=== PATIENT | female | born 1960 | race Caucasian/White ===

== ENCOUNTER 2021-04-26 10:27 | Outpatient (CLI) | payer OTHER, SELFPAY ==
[2021-04-26 16:56] LABS: Free T4 Free Thyroxine 1.47 ng/mL (0.78-2.19)
== END 2021-04-26 10:28 | disposition home or self-care (01) ==
LOC: ANHWCLAB 10:30
PROVIDERS: PCP Family Medicine; Visit Provider Internal Medicine Endocrinology, Diabetes & Metabolism
DX: E03.9 Hypothyroidism, unspecified (principal); E04.1 Nontoxic single thyroid nodule; M85.80 Other specified disorders of bone density and structure, unspecified site; R79.89 Other specified abnormal findings of blood chemistry
CPT/HCPCS: 36415; 84439; 84443

== ENCOUNTER → 2021-08-01 11:12 | Outpatient (CLI) | payer OTHER, SELFPAY ==
--- NOTE | ~2021-08-01 | DEXA_ITS ---
Bone Density Report Name: HAYDEN SZYMANSKI Age: 60 Sex: Female Ethnicity: White Date of : 1960 Indication: postmenopausal; screening for osteoporosis; history of glucocorticoids; hysterectomy; Referring Provider: Shreya Oliver Study: Bone densitometry was performed. Exam Date: August 01, 2021 Accession number: [id number] Bone Density: Region BMD T-score Z-score Classification AP Spine (L1-L4) 0.944 -0.9 0.7 Normal Femoral Neck (Left) 0.746 -0.9 0.5 Normal Total Hip (Left) 0.896 -0.4 0.7 Normal Femoral Neck (Right) 0.815 -0.3 1.1 Normal Total Hip (Right) 0.953 0.1 1.2 Normal Total Hip Mean 0.925 -0.2 1.0 Normal World Health Organization criteria for BMD impression classify patients as: Normal (T-score at or above -1.0), Osteopenia (T-score between -1.0 and -2.5), or Osteoporosis (T-score at or below -2.5). 10-year Fracture Risk: FRAX not reported because: All T-scores for Spine Total, Hip Total, Femoral Neck at or above -1.0 Clinical Information Provided by Patient: Has taken Glucocorticoids Has used the following medications: Calcium, calcium includes vit D, MTV Has the following medical conditions: Hysterectomy Patient maximum height was 61.75 Menopause Age: 36 Drinks caffeinated beverages Onset of menses at age 11 Number of children 2 Impression: The patient has normal bone mass. The patient has risk factors, including: history of glucocorticoid therapy. Discussion: BONE DENSITY IS ABOVE THE MINIMUM DESIRABLE LEVEL AT ALL SKELETAL SITES TESTED. This patient?s bone mineral density is above the minimum desirable level (T-score -1.0 or better) at all sites measured. The patient should follow a healthful lifestyle (good nutrition with adequate calcium and vitamin D, and appropriate weight-bearing exercise). Follow-Up: Consider repeating this study in 5 years or sooner if there is some new clinical indication. Reported by: [facility] on 08/01/2021 11:41:00 AM. Reviewed, dictated and finalized at location A. [facility]
== END ==
PROVIDERS: PCP Family Medicine; Visit Provider Internal Medicine Endocrinology, Diabetes & Metabolism
DX: M85.88 Other specified disorders of bone density and structure, other site (principal); Z78.0 Asymptomatic menopausal state
CPT/HCPCS: 77080

== ENCOUNTER 2023-04-19 12:52 | Outpatient (CLI) | payer OTHER, SELFPAY ==
--- NOTE | 2023-04-19 13:06 | ECG_ITS ---
Measurements Intervals [place] Rate: 64 P: 28 UT: 162 QRS: -35 QRSD: 90 T: 78 QT: 425 QTc: 441 Interpretive Statements SINUS RHYTHM LOW QRS VOLTAGE IN PRECORDIAL LEADS ANTEROLATERAL INFARCT, AGE INDETERMINATE INFERIOR INFARCT, AGE INDETERMINATE BORDERLINE ST-T WAVE ABNORMALITY- HIGH LATERAL LEADS BASELINE ARTIFACT- I, II, III, AVR, AVL, AVF, V4-V5 ABNORMAL ECG NO PREVIOUS ECG AVAILABLE FOR COMPARISON Electronically Signed On 04-19-2023 13:33:40 CDT by Mack Trotter D.O.
[2023-04-19 13:46] LABS: Hematocrit 38.2 % (37.0-47.0); Hemoglobin 11.8 g/dL (12.0-15.0)
== END 2023-04-19 12:53 | disposition home or self-care (01) ==
LOC: ANHSURGERY 12:56
PROVIDERS: Anesthesiology; PCP Family Medicine; Visit Provider Surgery Plastic and Reconstructive Surgery
DX: Z41.1 Encounter for cosmetic surgery (principal)
CPT/HCPCS: 36415; 85014; 85018; 93005

== ENCOUNTER 2023-04-23 00:43 | Day surgery (SDC) | payer OTHER, SELFPAY ==
[2023-04-16 14:49] VITALS: BMI 33.6
--- NOTE | 2023-04-16 14:50 | PC.NURSE ---
Report to the Outpatient Waiting Room, entrance under the green pavilion located off [facility], at time 6:00 on date 04/23/23. Planned Procedure Time: 7:30. Time changes happen often and if your time is changed the preop area will call you the afternoon before. - You and your visitor will be asked to self-screen and do not enter if you have any COVID symptoms. - A mask is optional within the hospital at this time. Patients may have clear liquids (water, carbonated beverages, clear teas, apple juice) until 3 hours prior to surgery (4:30) with a maximum of 20 ounces. - No food from midnight until time of surgery Take the following medications with a SIP of water the morning of surgery: LEVOTHYROXINE, LIOTHYRONINE, ALPRAZOLAM IF NEEDED DO NOT STOP ANY OF YOUR OTHER PRESCRIPTION MEDICATIONS PRIOR TO SURGERY ?EXCEPT THE FOLLOWING Medications to discontinue per physician: VITAMINS Date to take last dose: 04/19/23 Please no make-up, nail slovenian, hairspray, perfume, deodorant, or body powder the day of surgery. No jewelry (including any body piercings) or valuables the day of surgery, leave them at home. Please take a shower or bath the night before, or the morning of, surgery with an antibacterial soap. Wear comfortable, loose fitting clothing. - Jewelry must be removed prior to entering the operating room. Rings and piercings that are not removed may be cut off. - The hospital will not accept responsibility for valuables. - Please leave all valuables, including medications, at home the day of surgery. If you are going home after surgery, a licensed flag car driver must drive you home. - NO public transportation without another adult if you receive anesthesia. - We recommend that an adult stay with you for 24 hours following discharge. - We also recommend that you do not drive, make important decision, drink alcoholic beverages, or take any drugs that were not prescribed by your health care provider for at least 24 hours after your discharge time. Follow any additional instructions given to you from your surgeon. If you or anyone in your household have experienced Covid symptoms in the past week, please notify your surgeon or the nurse liaison at the phone number below for possible testing. Telephone instructions given to PT - HAYDEN SZYMANSKI and asked if any additional questions and then verbalized understanding. Patient advised to call surgeon office or pre surgery nurse liaison [phone] if any additional questions.
[2023-04-23] VITALS (10 sets, daily range): BP systolic 92–160; BP diastolic 50–90; PULSE 58–82; RESP 12–18; TEMP 36.2–37.1; O2SAT 92–100; BMI 34.0
[2023-04-23 06:28] LABS: Urine Cotinine NEGATIVE
[2023-04-23] MEDS: LACTATED RINGERS 1,000 ML 30 ML IV CONT ×2 (06:30→15:13)
--- NOTE | 2023-04-23 06:43 | WPDANESEPPF ---
Anes - Initial Pre Proc Eval Procedure: Operation Date: 04/23/23 07:30 Proposed Procedures p Bilateral Breast Mastopexy with Galaflex - Coy Hughes MD s Abdominoplasty with Liposuction - Coy Hughes MD Date/Time: 04/23/23 06:43 Surgeon: Coy Hughes MD Pre Op Diagnosis: breast ptosis, skin laxity Patient Data Age: 62 Gender: F Height: 1.57 m Weight: 83.5 kg Allergies Allergy/AdvReac Type Severity Reaction Status Date / Time No Known Allergies Allergy Unknown Verified 04/23/23 06:42 Home Medications Medication Instructions Recorded Confirmed Type multivitamin,eq-abpl-nonfhezf 1 tablet PO DAILY 08/31/19 04/23/23 History (Complete Multivitamin tablet) levocetirizine 5 mg tablet (Xyzal) 5 mg PO DAILY 05/24/22 04/16/23 History levothyroxine 75 mcg tablet 75 mcg PO .COMPLEX #90 tabs 11/22/22 04/23/23 Rx liothyronine 5 mcg tablet (Cytomel) 5 mcg PO DAILY 90 days #90 tabs 11/22/22 04/23/23 Rx cholecalciferol (vitamin D3) 1,250 1,250 mcg PO WEEKLY #12 caps 03/01/23 04/23/23 Rx mcg (50,000 unit) capsule alprazolam 0.25 mg tablet 0.25 mg PO .q8hr PRN anxiety #90 04/02/23 04/16/23 Rx tabs Laboratory Tests 04/23/23 06:13 Cotinine Negative Patient hx anesthesia problems: none Family hx anesthesia problems: none Results Review: All pre-operative results and documents have been reviewed as part of the pre-operative evaluation. [facility] Past Medical History Medical History Hypothyroidism (acquired) Iron deficiency Multinodular goiter Thyroid nodule Surgical History Surgical History H/O: History of appendectomy History of partial hysterectomy Family History Family History Grandparent Diabetes mellitus Family history of Alzheimer's disease Family history of malignant neoplasm of uterus Other Family history of thyroid disease Social History Social History Smoking status: Never smoker Second hand tobacco smoke exposure: No Alcohol intake: never Alcohol use details: rarely Substance use: never Substance use type: does not use Living arrangements: with family 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/Education: occupation 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 Informed Consent: The patient's anesthetic plan and its attendant risks and benefits were discussed with the patient/family/POA. Questions were solicited and answers provided to the satisfaction of the patient/family/POA.
--- NOTE | 2023-04-23 07:21 | WPDHPUPDATE1 ---
History and Physical Update Update Date/Time: 04/23/23 07:21 History and Physical has been reviewed, including an updated exam of the patient. There are NO changes in the patient's condition. Risks, benefits, and alternatives have been discussed and questions answered. Patient agrees to proceed with procedure.
--- NOTE | 2023-04-23 07:22 | W.PM.PROC2 ---
Procedure Note - Detailed Date of Procedure 04/23/23 Pre-op Diagnosis breast ptosis, skin laxity Post-op Diagnosis Same Procedure Performed 1. Bilateral mastopexy with Galaflex 2. Progressive tension abdominoplasty Surgeon Coy Hughes MD Anesthesia General Findings Inverted T superior pedicle mastopexy Galaflex Lot [id number] Tissue removed: 3200 grams Lipoaspirate: 3200 cc Description of Procedure They are here today for the above procedures. Previously and again today the risks, benefits, alternatives were discussed in extensive detail. I wanted them to be very realistic about the risks involved as well as expectations. We discussed aftercare and what to monitor for. I was very upfront about the risks of wound breakdown leading to loss of skin, open wounds, and need for additional procedures with permanent abdominal deformity. We discussed DVT/PE risks and management. Made sure answered all of their questions to their satisfaction today and consent was obtained. Flank / lower back They were marked in the preoperative holding area with their verification. The patient was taken to the operating room. Anesthesia was provided by anesthesiology. A Colon catheter was started. Placed prone on the operating room table with care taken to protect from injury. Prepped and draped in a standard sterile fashion. A surgical time-out was taken. Stab incisions were made and tumescent solution was infiltrated. Once adequate time was allowed for hemostasis a 5mm basket and 3mm multi hole cannula were utilized to complete suction lipectomy based on S.A.F.E. technique in multiple planes and passes. Suction lipectomy continued to result based on pre-operative planning, intra-operative observation, and rolling pinch test which were in full agreement. Patient was then placed supine with care taken to protect from injury. Breast Eleven blade was utilized to make a stab incision and infiltrated with low volume tumescent solution. The breast was tailor tacked into place. I tailor tacked the breast into position. Placed her in a sitting position. Verified the nipple-areolar location based on preoperative planning as well as intraoperative observations and measurements in full agreement. She was placed supine. I de-epithelialized the pedicle. I then de-epithelialized the inferior breast tissue to create an autoaugmentation flap based on intercostal home health physical therapist. I elevated medial and lateral tissue flaps as well for planned closure. The autoaugmentation flap was sutured to the chest wall with 2-0 PDS. Galaflex was soaking in a betadine solution on the back table. It was trimmed and it was sutured into place bilateral with 2-0 Vicryl. I closed along the IMF with 2-0 Stratafix. Along the vertical with 2-0 PDS. I closed around the James with 3-0 strata fix. 3-0 Monocryl along the vertical. 3-0 Stratafix along the IMF. I finally closed everything with running subcuticular 4-0 Monocryl and tissue glue. Abdomen I placed the patient in a flexed position to verify the upper and lower markings would reach. I then placed supine. A thorough abdominal examination was completed. Stab incisions were made and tumescent solution infiltrated. Stab incisions were made and tumescent solution was infiltrated. Once adequate time was allowed for hemostasis a 5mm basket and 3mm multi hole cannula were utilized to complete suction lipectomy based on S.A.F.E. technique in multiple planes and passes. Suction lipectomy continued to result based on pre-operative planning, intra-operative observation, and rolling pinch test which were in full agreement. A 10 blade was used to make the upper incision. I continued dissection down to the level of fascia. Elevated just what was necessary for repair of the diastasis. I then again flexed the bed to verify the upper skin flap would reach the lower markings without tension. Once verified I plac
[2023-04-23] MEDS: BUPivacaine HCL 0.5% 10 ML AMP 60 ML INFILTRATE (07:32)
[2023-04-23] MEDS: ceFAZolin 2 GM/D5W 50 ML 2 GM/50 ML BAG IVPB (07:32)
[2023-04-23] MEDS: LACTATED RINGERS IRRIG 1,000 ML, LIDOCAINE HCL 1% LOCAL INJ 50 ML, EPINEPHrine HCL INJ ... INFILTRATE (07:32)
[2023-04-23] MEDS: NACL 0.9% IRRIG POUR BOTTLE 900 ML, GENTAMICIN SULFATE INJ 160 MG, ceFAZolin 2 GM, POVI... IRRIGATION (07:32)
[2023-04-23] MEDS: TRANEXAMIC ACID 1,000MG/ISO100 1,000 MG/100 ML BAG 200 MG IVPB (07:42)
--- NOTE | 2023-04-23 14:49 | SUR.OPER ---
when inserting felder catheter, red irritation and small tinge of blood present in area surrounding urethra. Dr. Hughes informed, no further orders received
[2023-04-23] MEDS: LACTATED RINGERS 1,000 ML 125 ML IV CONT ×2 (15:13→17:17)
[2023-04-23] MEDS: fentaNYL CITRATE INJ (*CRX) 100 MCG/2 ML VIAL 25 MCG IV PUSH ×6 (15:31→16:27)
--- NOTE | 2023-04-23 16:45 | PC.NURSE ---
This patient, Simran Phoenix, was received from PACU on 04/23/23 at 1645. Patient/family oriented to unit policies and routines
[2023-04-23] MEDS: KETOROLAC 10 MG TABLET PO (17:16)
[2023-04-23] MEDS: ONDANSETRON INJ 4 MG/2 ML VIAL IV PUSH (17:16)
[2023-04-23] MEDS: carisoprodoL (*CRX) 350 MG TABLET PO (17:17)
[2023-04-23] MEDS: DOCUSATE SODIUM 100 MG CAPSULE PO (21:01)
[2023-04-23] MEDS: ENOXAPARIN 40 MG/0.4 ML SYRINGE SUB-Q (22:08)
[2023-04-24 00:40] VITALS: BP 119/68; PULSE 94; RESP 16; TEMP 37.6; O2SAT 93
[2023-04-24] MEDS: carisoprodoL (*CRX) 350 MG TABLET PO ×3 (00:42→11:48)
[2023-04-24] MEDS: KETOROLAC 10 MG TABLET PO ×3 (00:42→11:47)
[2023-04-24 05:05] VITALS: BP 109/58; PULSE 95; RESP 16; TEMP 37.8; O2SAT 92
[2023-04-24] MEDS: LEVOTHYROXINE SODIUM 75 MCG TABLET PO (06:44)
[2023-04-24 07:03] VITALS: BP 106/68; PULSE 105; RESP 18; TEMP 37.3
--- NOTE | 2023-04-24 07:27 | WPDPN ---
Progress Note: A&P Assessment and Plan (1) Breast ptosis: Code(s): N64.81 - Ptosis of breast Status: Acute Assessment and Plan: Doing well after bilateral breast mastopexy and progressive tension abdominoplasty with suction lipectomy. Will discharge home. Today we had a lengthy discussion about the care. Activity limitations. What to monitor for. What is an emergency and when to dial 911 / proceed to the ER. This was a lengthy open ended conversation making sure they were well informed. Answered all their questions. They voiced a clear understanding. Will discharge home. Call with any questions or concerns in the meantime. (2) Skin laxity: Code(s): L57.4 - Cutis laxa senilis Status: Acute (3) Localized adiposity: Code(s): E65 - Localized adiposity Status: Acute Subjective Date/time seen: 04/24/23 07:27 Interval history: Doing well after bilateral breast mastopexy and progressive tension abdominoplasty with suction lipectomy. Some nausea last evening, now resolved. Ambulating. Pain controlled. No nausea / vomiting. No fevers / chills. No shortness of breast. No chest pain. No calf tenderness. Review of Systems Review of Systems: All systems reviewed & are unremarkable except as noted in HPI and below Exam Narrative: Alert & Oriented NOD Respiratory unlabored Breast is healing well. No signs of infection. No hematoma. No seroma. Good color and capillary refill. Abdomen is healing well. No signs of infection. No hematoma. No seroma. Good color and capillary refill. No calf tenderness. Negative Henrique's Objective Data Vital Signs Vital Signs: Vital Signs - 24 hr 04/23/23 15:13 04/23/23 15:30 04/23/23 15:39 Temperature 37.1 C Pulse Rate 58 L 69 Respiratory Rate 13 13 Blood Pressure 92/50 L 153/90 H Pulse Oximetry 100 100 100 Oxygen Delivery Simple Face Mask Simple Face Mask Room Air Oxygen Flow Rate 6 6 04/23/23 15:45 04/23/23 16:00 04/23/23 16:15 Temperature Pulse Rate 72 78 82 Respiratory Rate 12 16 16 Blood Pressure 151/79 H 160/83 H 160/80 H Pulse Oximetry 92 95 95 Oxygen Delivery Room Air Room Air Room Air Oxygen Flow Rate 04/23/23 16:36 04/23/23 17:00 04/23/23 20:10 Temperature 36.7 C 37.1 C Pulse Rate 80 73 80 Respiratory Rate 16 14 18 Blood Pressure 157/80 H 157/90 H 141/77 H Pulse Oximetry 95 96 97 Oxygen Delivery Room Air Oxygen Flow Rate 04/24/23 00:40 04/24/23 05:05 Temperature 37.6 C H 37.8 C H Pulse Rate 94 95 Respiratory Rate 16 16 Blood Pressure 119/68 109/58 L Pulse Oximetry 93 92 Oxygen Delivery Oxygen Flow Rate Intake/Output Intake/Output: Intake & Output 04/21/23 04/22/23 04/23/23 04/24/23 23:59 23:59 23:59 23:59 Intake Total 600 Output Total 777 325 Balance -177 -325 Meds/Results Medications: Active Medications Generic Name Dose Route Start Last Admin Trade Name Freq PRN Reason Stop Dose Admin Carisoprodol 350 mg 04/23/23 18:00 04/24/23 06:44 Carisoprodol (*Crx) 350 Mg Tablet PO 350 mg Q6HR CARRIE Administration Diazepam 5 mg 04/23/23 14:53 Diazepam (*Crx) 5 Mg Tablet PO TID PRN Anxiety Docusate Sodium 100 mg 04/23/23 21:00 04/23/23 21:01 Docusate Sodium 100 Mg Capsule PO 100 mg Q12HR CARRIE Administration Enoxaparin Sodium 40 mg 04/23/23 22:00 04/23/23 22:08 Enoxaparin 40 Mg/0.4 Ml Syringe SUB-Q 40 mg HS CARRIE Administration Lactated Ringer's 1,000 mls @ 125 mls/hr 04/23/23 14:55 04/23/23 17:17 Lr - Lactated Ringers Iv IV CONT 125 mls/hr .Q8H CARRIE Administration Ketorolac Tromethamine 10 mg 04/23/23 18:00 04/24/23 06:44 Ketorolac 10 Mg Tablet PO 04/25/23 12:01 10 mg Q6HR CARRIE Administration Levothyroxine Sodium 75 mcg 04/24/23 06:30 04/24/23 06:44 Levothyroxine Sodium 75 Mcg Tablet PO 75 mcg DAILY@0630 CARRIE Administration Liothyronine Sodium 5 mcg 04/24/23 09:0
--- NOTE | 2023-04-24 07:30 | PM.DS ---
DS: Admitting Diagnosis Discharge Date 04/24/2023 Admitting Diagnosis Breast ptosis Skin laxity Localized adiposity DS: Discharge Diagnosis Discharge Diagnosis (1) Breast ptosis: Code(s): N64.81 - Ptosis of breast Status: Acute (2) Skin laxity: Code(s): L57.4 - Cutis laxa senilis Status: Acute (3) Localized adiposity: Code(s): E65 - Localized adiposity Status: Acute DS: Summary Hospital Course Hospital Course: Underwent bilateral breast mastopexy and progressive tension abdominoplasty with suction lipectomy. Post-operatively has done well. Will discharge home. See back tomorrow for hemostatic net removal. Time Spent with Patient Time attestation: Total time spent providing and/or coordinating discharge services: Exam Narrative: Alert & Oriented NOD Respiratory unlabored Breast is healing well. No signs of infection. No hematoma. No seroma. Good color and capillary refill. Abdomen is healing well. No signs of infection. No hematoma. No seroma. Good color and capillary refill. No calf tenderness. Negative Henrique's Discharge Plan Discharge Patient Disposition: Home, Self-Care Discharge Instructions: POST OPERATIVE DISCHARGE INSTRUCTIONS COY HUGHES M.D. [facility] [address] [place] [address] [address] for 24 hours after anesthesia and while you are taking pain medication. Take all prescribed medication as directed Diet as tolerated. No lifting or activity that raises blood pressure for 48 hours. Regular walking / ambulation. May shower 24 hours after surgery. Once you shower do not take pain medication before showering as the combination of medication and heat may cause you to feel dizzy or pass out. No pools or tubs for 2 weeks. Slowly stand up straight as tolerated. No straining or lifting more than 20 pounds. If no bowel movement within 24 hours may use laxative. Call with any questions or concerns. Dressing Care: Continue abdominal binder / foam and surgical bra 23 hours per day. If you have any questions or concerns, please call the office . If it is after hours you will be directed to the medical numerical control operator exchange. Shortness of breath, chest pain, or other medical emergency dial 911 / proceed to the Emergency Room. Stand Alone Forms: General Discharge Instructions Follow-up/Referrals: Coy Hughes MD [Physician] - 04/25/23 Discharge Medications: Continued levocetirizine [Xyzal] 5 mg tablet 5 mg PO DAILY cholecalciferol (vitamin D3) 1,250 mcg (50,000 unit) capsule 1,250 mcg PO WEEKLY Qty: 12 1RF Patient Comments: PT TAKES ON SATURDAY alprazolam 0.25 mg tablet 0.25 mg PO .q8hr PRN (Reason: anxiety) Qty: 90 0RF Complete Multivitamin Tablet 1 tablet PO DAILY liothyronine [Cytomel] 5 mcg tablet 5 mcg PO DAILY 90 Days Qty: 90 1RF levothyroxine 75 mcg tablet 75 mcg PO .COMPLEX Qty: 90 1RF Rx Instructions: 75 mcg orally 1 tablet daily
[2023-04-24] MEDS: LIOTHYRONINE SODIUM 5 MCG TABLET PO (08:51)
[2023-04-24] MEDS: DOCUSATE SODIUM 100 MG CAPSULE PO (08:51)
[2023-04-24 09:06] VITALS: BP 97/56; PULSE 105; RESP 16; TEMP 36.2; O2SAT 96
--- NOTE | 2023-04-24 09:50 | PC.NURSE ---
On 04/24/23, the student, Juju Barajas, provided care and completed [facility] documentation on this patient. I have reviewed the student's documentation and agree with the findings.
--- NOTE | 2023-04-24 10:47 | WPDANESPN ---
Anes - Prog Note Post-Op Date/Time: 04/24/23 10:47 Cardiovascular status: normal Respiratory status: normal Airway patency: baseline Mental status: baseline Post-Op hydration status: normal Vital Signs: Last Vital Signs Temp 36.2 C L 04/24/23 09:06 Pulse 105 H 04/24/23 09:06 Resp 16 04/24/23 09:06 BP 97/56 L 04/24/23 09:06 Pulse Ox 96 04/24/23 09:06 O2 Del Method Room Air 04/23/23 16:36 O2 Flow Rate 6 04/23/23 15:30 Pain Score (VAS): 310 I/O: Intake & Output 04/23/23 04/24/23 04/24/23 23:59 07:59 15:59 Intake Total 100 120 Output Total 777 325 Balance -677 -325 120 Post-procedural complaints: none Patient Feedback: Patient satisfied with anesthetic care.
[2023-04-24 12:00] VITALS: BP 108/57; PULSE 93; RESP 16; TEMP 36.7; O2SAT 93
[2023-04-24] MEDS: oxyCODONE/ACETAMINOPHEN (*CRX) 5-325 MG TABLET PO (14:04)
== END 2023-04-24 16:30 | disposition home or self-care (01) ==
LOC: ANHSURGERY 07:29 → ANHOB2 16:40
PROVIDERS: PCP Family Medicine; Visit Provider Surgery Plastic and Reconstructive Surgery
PROC: (CPT 19316; principal; 2023-04-23 07:30)
PROC: (CPT 15830; 2023-04-23 07:30)
DX: Z41.1 Encounter for cosmetic surgery (principal); E65 Localized adiposity; L57.4 Cutis laxa senilis; N64.81 Ptosis of breast; E03.9 Hypothyroidism, unspecified; E61.1 Iron deficiency; E66.9 Obesity, unspecified; Z68.34 Body mass index [BMI] 34.0-34.9, adult
CPT/HCPCS: 15830; 15847; 19316; 15777 ×2; 80307; 99199; A9270; J0171; J0690; J1100; J1170; J1580; J1650; J2250; J2405; J2704; J3010; J7120

== ENCOUNTER 2024-02-25 10:04 | Outpatient (CLI) | payer OTHER, SELFPAY ==
--- NOTE | 2024-02-25 11:30 | NEURO_ITS ---
Impression: # Complains of numbness of hands. # Bilateral ulnar neuropathy across the elbows. # Abnormal needle/EMG exam. # Clinical correlation recommended. Nerve Conduction Studies Anti Sensory Summary Table Stim Site NR Peak (ms) P-T Amp (?V) Site1 Site2 Delta-P (ms) Dist (cm) Christophe (m/s) Left Median Anti Sensory (2-3nd Digit) Wrist 3.2 73.5 Wrist 2-3nd Digit 3.2 14.0 44 Wrist 3.3 79.0 Wrist 2-3nd Digit 3.2 14.0 44 Right Median Anti Sensory (2-3nd Digit) Wrist 2.8 65.5 Wrist 2-3nd Digit 2.8 14.0 50 Wrist 2.9 51.9 Wrist 2-3nd Digit 2.8 14.0 50 Left Radial Anti Sensory (Base 1st Digit) Wrist 2.3 56.7 Wrist Base 1st Digit 2.3 0.0 Right Radial Anti Sensory (Base 1st Digit) Wrist 2.5 16.3 Wrist Base 1st Digit 2.5 0.0 Left Ulnar Anti Sensory (5th Digit) Wrist 2.9 12.4 Wrist 5th Digit 2.9 14.0 48 Right Ulnar Anti Sensory (5th Digit) Wrist 2.2 23.3 Wrist 5th Digit 2.2 14.0 64 Motor Summary Table Stim Site NR Onset (ms) O-P Amp (mV) Site1 Site2 Delta-0 (ms) Dist (cm) Christophe (m/s) Left Median Motor (Abd Poll Brev) Wrist 3.0 4.0 Elbow Wrist 4.9 27.0 55 Elbow 7.9 3.8 Right Median Motor (Abd Poll Brev) Wrist 2.8 5.6 Elbow Wrist 4.9 26.0 53 Elbow 7.7 3.5 Left Ulnar Motor (Abd Dig Minimi) Wrist 2.7 3.7 A Elbow Wrist 6.1 28.0 46 A Elbow 8.8 2.3 B Elbow Wrist 3.8 21.0 55 B Elbow 6.5 3.1 Right Ulnar Motor (Abd Dig Minimi) Wrist 2.9 4.8 A Elbow Wrist 6.6 28.0 42 A Elbow 9.5 3.3 B Elbow Wrist 4.4 20.0 45 B Elbow 7.3 2.0 F Wave Studies NR F-Lat (ms) L-R F-Lat (ms) Left Median (Mrkrs) (Abd Poll Brev) 27.11 0.39 Right Median (Mrkrs) (Abd Poll Brev) 26.72 0.39 Left Ulnar (Mrkrs) (Abd Dig Min) 28.64 0.87 Right Ulnar (Mrkrs) (Abd Dig Min) 27.76 0.87 EMG Side Muscle Nerve Root Ins Act Fibs Amp Dur Recrt Comment Right 1stDorInt Ulnar C8-T1 Nml Nml Nml >12ms +2 Right Ext Indicis Radial (Post Int) C7-8 Nml Nml Nml Nml Nml Right Ext Digitorum Radial (Post Int) C7-8 Nml Nml Nml Nml Nml Right BrachioRad Radial C5-6 Nml Nml Nml Nml Nml Right PronatorTeres Median C6-7 Nml Nml Nml Nml Nml Right Abd Poll Brev Median C8-T1 Nml Nml Nml Nml Nml Right ABD Dig Min Ulnar C8-T1 Nml Nml Nml >12ms +2 Left 1stDorInt Ulnar C8-T1 Nml Nml Nml >12ms +2 Left Ext Indicis Radial (Post Int) C7-8 Nml Nml Nml Nml Nml Left Ext Digitorum Radial (Post Int) C7-8 Nml Nml Nml Nml Nml Left BrachioRad Radial C5-6 Nml Nml Nml Nml Nml Left PronatorTeres Median C6-7 Nml Nml Nml Nml Nml Left Abd Poll Brev Median C8-T1 Nml Nml Nml Nml Nml Left ABD Dig Min Ulnar C8-T1 Nml Nml Nml >12ms +2 MTDD
== END 2024-02-25 10:05 | disposition home or self-care (01) ==
LOC: ANHNEURO 10:05
PROVIDERS: PCP Nurse Practitioner Family; Visit Provider Physician Assistant Surgical
DX: R20.2 Paresthesia of skin (principal); G56.23 Lesion of ulnar nerve, bilateral upper limbs
CPT/HCPCS: 95886; 95911

== ENCOUNTER 2024-05-12 14:23 | Outpatient (CLI) | payer OTHER, SELFPAY ==
--- NOTE | ~2024-05-12 | DEXA_ITS ---
Bone Density Report Name: HAYDEN SYZMANSKI Age: 63 Sex: Female Ethnicity: White Date of : 1960 Indication: postmenopausal; screening for osteoporosis; hysterectomy; Referring Provider: Shreya Oliver Study: Bone densitometry was performed. Exam Date: May 12, 2024 Accession number: [id number] Bone Density: Region BMD T-score Z-score Classification AP Spine(L1-L4) 0.922 -1.1 0.7 Osteopenia Femoral Neck (Left) 0.693 -1.4 0.1 Osteopenia Total Hip (Left) 0.919 -0.2 1.1 Normal Femoral Neck (Right) 0.802 -0.4 1.1 Normal Total Hip (Right) 1.035 0.8 2.0 Normal Femoral Neck Mean 0.748 -0.9 0.6 Normal Total Hip Mean 0.977 0.3 1.5 Normal World Health Organization criteria for BMD impression classify patients as: Normal (T-score at or above -1.0), Osteopenia (T-score between -1.0 and -2.5), or Osteoporosis (T-score at or below -2.5). 10-year Fracture Risk(1): Major Osteoporotic Fracture 8.5% Hip Fracture 0.8% Reported Risk Factors: [place] (), Neck BMD=0.693, BMI=29.9 (1) FRAX(R) Version 3.08. Fracture probability calculated for an untreated patient. Fracture probability may be lower if the patient has received treatment. Clinical Information Provided by Patient: Has used the following medications: HRT (i.e. estrogen/hormone therapy), Vitamin D, multivitamin Has the following medical conditions: Hysterectomy Patient maximum height was 62 Menopause Age: 50 Onset of menses at age 11 Number of children 2 Impression: The patient has low bone mass, based on the Left Femoral Neck T-score. Discussion: BONE DENSITY IS LOW AT ONE OR MORE SKELETAL SITES. This patient's lowest T-score is low at one or more skeletal sites. It meets the World Health Organization's (WHO) criteria for ?low bone mass? (T-score between -1.0 and -2.5). The patient's 10-year risk of fracture as calculated by FRAX is less than the threshold where pharmacological therapy is recommended by the National Osteoporosis Foundation (NOF). However, all treatment decisions require clinical judgment and consideration of individual patient factors, including patient preferences, comorbidities, previous drug use, risk factors not captured in the FRAX model (e.g., frailty, falls, vitamin D deficiency, increased bone turnover, interval significant decline in bone density) and possible under or overestimation of fracture risk by FRAX. The patient should follow a healthful lifestyle (good nutrition with adequate calcium and vitamin D, and appropriate weight-bearing exercise). Follow-Up: Consider repeating this study in 2 to 3 years to reassess this patient's status, or sooner if there is some new clinical indication. Reported by: DUARTE on 05/12/2024 2:50:00 PM.
== END 2024-05-12 14:24 | disposition home or self-care (01) ==
PROVIDERS: PCP Nurse Practitioner Family; Visit Provider Internal Medicine Endocrinology, Diabetes & Metabolism
DX: Z78.0 Asymptomatic menopausal state (principal); M85.88 Other specified disorders of bone density and structure, other site
CPT/HCPCS: 77080

== ENCOUNTER 2024-11-23 09:23 | Outpatient (CLI) | payer OTHER, SELFPAY ==
[2024-11-23 09:59] LABS: Hematocrit 39.5 % (37.0-47.0); Mean Corpuscular HGB Conc 30.4 g/dl (32-36); Mean Corpuscular Hemoglobin 24.9 pg (26-34); Mean Corpuscular Volume 82.1 fl (80-100); Mean Platelet Volume 8.1 fl (7.4-10.4); Platelet Count Result 280 k/mm3 (150-375); Red Blood Count 4.81 M/mm3 (4.2-5.4); Red Cell Distribution Width 15.5 % (11.5-14.5); White Blood Count 3.4 K/mm3 (4.5-10.0)
[2024-11-23 10:15] LABS: Albumin Level 4.4 g/dL (3.5-5.1); Anion Gap 8 mmol/L (4-12); Blood Urea Nitrogen 14 mg/dL (7-17); Calcium 9.1 mg/dL (8.4-10.2); Carbon Dioxide 30 mmol/L (22-30); Chloride 103 mmol/L (98-107); Estimated Glomerular Filt Rate > 60; Glucose 93 mg/dL (65-110); Potassium 3.4 mmol/L (3.4-5.0); Sodium 141 mmol/L (137-145)
--- OUTSIDE RECORDS SUMMARY | 2024-11-23 10:20 | XMS_ITS | Clinical Summary ---
Author Organization [facility] Address [facility] 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
--- OUTSIDE RECORDS SUMMARY | 2024-11-23 10:20 | XMS_ITS | Encounter Summary ---
Author Organization [facility] Address [address] [place] [id number] Care Team Providers Care Information Director Name Role Phone Nabil Saldivar MD Primary Care Provider [phone] Reason for Visit * Reason Onset Date Comments Preprocedure Call 03/11/2019 Encounter Details Date Type Department Care Team (Late st Contact Info) Description 03/11/2019 Pre-Procedure Call [facility] [address] [place] [address] Sejal Rain MD Preprocedure Call Social History Tobacco Use Types Packs/Day Years Used Date Smoking Tobacco: Never Smokeless Tobacco: Never Alcohol Use Standard Drinks/Week Comments No 0 (1 standard drink = 0.6 oz pur e alcohol) AUDIT-C Answer Date Recorded Frequency of Alcohol Consumption Never 03/13/2019 Average Number of Drinks Not on file 019 Frequency of Binge Drinking Not on file 02/26 Comments Unknown Sex and Gender Information Value Date Recorded Sex Assigned at Not on file Legal Sex Female 7:57 PM CDT Gender Identity Not on file Sexual Orientation Not on file documented as of this encounter Last Filed Vital Signs Vital Sign Reading Time Taken Comments Blood Pressure - - Pulse - - Temperature - - Respiratory Rate - - Oxygen Saturation - - Inhaled Oxygen Concentration - - Weight 81.6 kg (180 lb) 03/11/2019 12:00 AM CDT Height 157.5 cm (5' 2 ) 03/11/2019 12:00 AM CDT Body Mass Index 32.92 03/11/2019 12:00 AM CDT documented in this encounter Functional Status documented as of this encounter Plan of Treatment Not on file documented as of this encounter Visit Diagnoses Not on filedocumented in this encounter Care Teams Information Director Relationship Specialty Start Date End Date Nabil Saldivar MD PCP - General SURGERY 03/10/19 documented as of this encounter
--- OUTSIDE RECORDS SUMMARY | 2024-11-23 10:20 | XMS_ITS | Clinical Summary ---
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 Active fexofenadine 180 MG tablet Take 180 mg by mouth daily. Active estradiol 0.1 MG/GM vaginal cream Place 2 g vaginally daily. Active Social History Tobacco Use Types Packs/Day Years [...] on file Sexual Orientation Not on file Last Filed Vital Signs Vital Sign Reading Time Taken Comments Blood Pressure 142/73 03/17/2019 12:26 PM CDT Pulse 60 03/17/2019 12:26 PM CDT Temperature 36.8 C (98.2 F) 03/17/2019 12:26 PM CDT Respiratory Rate 18 03/17/2019 12:26 PM CDT Oxygen Saturation 95% 03/17/2019 12:26 PM CDT Inhaled Oxygen Concentration - - Weight 81.6 kg (180 lb) 03/11/2019 12:00 AM CDT Height 157.5 cm (5' 2 ) 03/11/2019 12:00 AM CDT Body Mass Index 32.92 03/11/2019 12:00 AM CDT Plan of Treatment Health Maintenance Due Date Last Done Comments Colorectal Cancer Screening Colonoscopy (10 Years) 1960 Hepatitis C 1976 DTaP, Tdap and Td Vaccines ( 1 - Tdap) 1977 Mammogram Screening 1998 Pneumococcal Vaccine: 50+ Years (1 of 1 - PCV) 2008 Dexa Scan (General) 11/04/2023 COVID-19 Vaccine (1 - 2023-2 5 season) 2024 PHQ-2 (Physician Pamunkey) 07/29/2024 RSV Immunization or 60+ Years (1 - 1-dose 75+ series) 2033 Zoster Vaccines Completed 01/13/2020, 08/26/2019 Meningococcal B Vaccine Aged Out No l onger eligible based on patient's age to complete this topic Meningococcal Vaccine Aged Out No hayley theresa eligible based on patient's age to complete this topic RSV Immunizations Under 20 Months Aged Out No longer eligible b ased on patient's age to complete this topic Insurance [facility] Care Teams Grain Drier Relationship Specialty Start Date End Date Nabil Saldivar MD PCP - General SURGERY 03/10/19
--- OUTSIDE RECORDS SUMMARY | 2024-11-23 10:20 | XMS_ITS | Patient Health Record ---
Author Organization [facility] Address [address] [facility] [address] [place] [address] Care Team Providers Care Lay Out Former Name Role Phone Nuha Whitten Primary Care Provider Katherine martin Leeroy Rossi Unavailable [phone] Christian Fry Unavailable [phone] Allergies No Known Allergies Results Component Value Reference Range Notes UDT Reviewed date:10/29/2024 05:27:18 PM Interpretation: Performing Lab: Notes/Report: THC NEG 0 - 50 ng/ml Cocaine NEG 0 - 300 ng/ml Amphetamine NEG 0 - 1000 ng/ml Buprenorphine (BUP) NEG 0 - 10 ng/ml Secobarbital (Bar) NEG 0 - 300 ng/ml Oxazepam (BZO) NEG 0 - 300 ng/ml 4-kxxutshbop-4,1-mehptbvu-6,3-diphenylpyrrolidine (CASEY P) NEG 0 - 300 ng/ml Methamphetamine (MET) NEG 0 - 1000 ng/ml Methylenedioxymethamphetamine (MDMA) NEG 0 - 500 ng/ml Morphine (MOP 300/[id number]) NEG 0 - 300 ng/ml Methadone (MTD) NEG 0 - 300 ng/ml Phencyclidine (PCP) NEG 0 - 25 ng/ml Nortriptyline (TCA) NEG 0 - 1000 ng/ml Oxycodone NEG 0 - 300 ng/ml x NEG 0 - 300 ng/ml UDT Reviewed date:07/16/2024 09:51:05 AM Interpretation: Performing Lab: Notes/Report: THC N 0 - 50 ng/ml Cocaine N 0 - 300 ng/ml Amphetamine N 0 - 1000 ng/ml Buprenorphine (BUP) N 0 - 10 ng/ml Secobarbital (Bar) N 0 - 300 ng/ml Oxazepam (BZO) P 0 - 300 ng/ml 1-fhvexumgvu-9,9-eqlqqpcu-6,3-diphenylpyrrolidine (CASEY P) N 0 - 300 ng/ml Methamphetamine (MET) N 0 - 1000 ng/ml Methylenedioxymethamphetamine (MDMA) N 0 - 500 ng/ml Morphine (MOP 300/[id number]) N 0 - 300 ng/ml Methadone (MTD) N 0 - 300 ng/ml Phencyclidine (PCP) N 0 - 25 ng/ml Nortriptyline (TCA) N 0 - 1000 ng/ml Oxycodone N 0 - 300 ng/ml x N 0 - 300 ng/ml UDT Reviewed date:07/03/2024 01:53:52 PM Interpretation: Performing Lab: Notes/Report: THC NEG 0 - 50 ng/ml Cocaine NEG 0 - 300 ng/ml Amphetamine NEG 0 - 1000 ng/ml Buprenorphine (BUP) NEG 0 - 10 ng/ml Secobarbital (Bar) NEG 0 - 300 ng/ml Oxazepam (BZO) POS 0 - 300 ng/ml 1-citfmtxmqi-6,0-zpbldmbp-1,3-diphenylpyrrolidine (CASEY P) NEG 0 - 300 ng/ml Methamphetamine (MET) NEG 0 - 1000 ng/ml Methylenedioxymethamphetamine (MDMA) NEG 0 - 500 ng/ml Morphine (MOP 300/[id number]) NEG 0 - 300 ng/ml Methadone (MTD) NEG 0 - 300 ng/ml Phencyclidine (PCP) NEG 0 - 25 ng/ml Nortriptyline (TCA) NEG 0 - 1000 ng/ml Oxycodone NEG 0 - 300 ng/ml x NEG 0 - 300 ng/ml Reason For Referral No Information Medications Medication SIG (Take, Route, Frequency, Duration) Notes Start Date End Date Status Tirzepatide 2.5 MG/0.5ML as directed Subcutaneous Active Sertraline HCl 100 MG 1 tablet Oral Once a day for 90 days Active Liothyronine Sodium 5 MCG 1 tablet on an empty stomach Orally Once a day Active Methylphenidate HCl ER (OSM) 18 MG 1 tablet in the morning Orally Once a day for 30 days 10/29/2024 Active Xyzal Active Vitamin D3 Active Multivitamin - 1 tablet Orally Once a day Active Calcium Carbonate 1250 (500 Ca) MG 1 tablet with food Orally once a day 07/01/2024 Active ALPRAZolam 0.25 MG 1 tablet Orally once a day As needed PRN 07/01/2024 Active Social History Tobacco Use: Social History Observation Description Date Details (start date - stop date) Never Smoker NA - NA Sex Assigned At : Social History Observation Description Sex Assigned At Female Tobacco Control (Standard) Question Answer Notes Tobacco use: Nonsmoker AUDIT-C (Standard) Question Answer Notes Did you have a drink contain ing alcohol in the past year? Yes How often did you have six o r more drinks on one occasion in the past year? Never (0 point) How many drinks did you have on a typical day when you were drinking in the past year? 1 or 2 drinks (0 point) How often did you have a dri nk containing alcohol in the past year? 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) Active confirmed Vital Signs Heart Rate 62 /min 10/29/2024 Height-cm 157.48 cm 10/29/2024 Blood pressure diastolic 77 mm Hg 10/29/2024 Weight-kg 68.04 kg 10/29/2024 Height 62 in 10/29/2024 Blood pressure systolic 122 mm Hg 10/29/2024 Weight 150 lbs 10/29/2024 BMI 27.43 kg/m2 10/29/2024 Procedures Procedure Date Ordered Date Performed Result Body Sit e ADHD Testing 07/01/2024 N/A ADHD Testing 07/13/2024 N/A Encounters Encounter Location Date Provider Diagnosis [facility] [address] [address] 07/01/2024 Leeroy Rossi Hypertension, unspecified type 401.9 ; Generalized anxiety disorder F41.1 ; Mild recurrent major depression F33.0 ; 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 and Attention and concentration deficit R41.840 [facility] [address] [facility] [address] [facility] [address] [place] [address] 07/13/2024 Christian Fry Attention and concentration deficit R41.840 [place] [id number] [facility] [address] [facility] [address] [place] [address] 07/31/2024 Leeroymanav Sandersa Generalized anxiety disorder F41.1 ; Mild recurrent major depression F33.0 ; 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 and Attention and concentration deficit R41.[address] [facility] [address] [place] [address] 08/31/2024 Leeroy Rossi Generalized anxiety disorder F41.1 ; Mild recurrent major depression F33.0 ; 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 and ADHD (attention deficit hyperactivity disorder), inattentive type F90.[address] [facility] [address] [place] [address] 09/28/2024 Leeroymanav Dimasoza Generalized anxiety disorder F41.1 ; Mild recurrent major depression F33.0 ; 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 and ADHD (attention deficit hyperactivity disorder), inattentive type F90.[address] [address] 10/29/2024 Leeroy Rossi Mild recurrent major depression F33.0 ; Generalized anxiety disorder F41.1 ; ADHD (attention deficit hyperactivity disorder), inattentive type F90.0 ; Encounter for screening for cardiovascular disorders Z13.6 ; Encounter for screening for depression Z13.31 and 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 [address] 05/18/2024 Leeroymanav Dimasoza Assessments Encounter Date Diagnosis (ICD Code) Assessment Notes Treatment Notes Treatment Clinical Notes Section Notes 07/01/2024 Hypertension, unspecified type (ICD9-CM - 401.9) 1. Generalized Anxiety Disorder (MOSES) - Plan: Start the patient on Zoloft 25 mg once daily for two weeks, then increase to 50 mg once daily. Monitor for side effects such as nausea, stomach upset, or sedation. 2. Mild Depression - Plan: The prescribed Zoloft for MOSES should also help with the patient's mild depression symptoms. Encourage the patient to engage in regular exercise and practice time blocking or scheduling tasks to improve mood and overall mental health. 3. Attention Deficit Hyperactivity Disorder (ADHD) - Suspected - Plan: Schedule the patient for ADHD testing, which takes about 45 to 60 minutes. Monitor the patient's response to the anxiety treatment, as easing anxiety may improve ADHD symptoms. If ADHD symptoms persist after addressing anxiety, consider initiating treatment for ADHD. 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 Encourage the patient to maintain a healthy lifestyle and follow up with their primary care provider as needed. 5. Insomnia - Plan: Addressing the patient's anxiety with Zoloft may improve sleep quality. Encourage the patient to practice good sleep hygiene, such as establishing a regular sleep schedule, creating a relaxing bedtime routine, and avoiding stimulating activities before bedtime. 6. Irritability - Plan: The prescribed Zoloft for MOSES may also help with the patient's irritability. Encourage the patient to practice stress management techniques, such as deep breathing exercises, mindfulness, and relaxation techniques. Follow-up: Schedule a follow-up appointment in one month to assess the patient's response to the medication and adjust the treatment plan as needed. 07/13/2024 Attention and concentration deficit (ICD-10 - R41.840) 07/31/2024 Generalized anxiety disorder (ICD-10 - F41.1) 1. Anxiety and irritability: - Patient reports improvement in irritability after starting sertraline 50 mg daily, but minimal improvement in anxiety. Plan: - Increase sertraline to 100 mg daily. - Reassess anxiety and irritability in 4 weeks. 2. ADHD, primarily inattentive type: - Patient's testing results support a diagnosis of ADHD, primarily inattentive type. 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 Plan: - Monitor the patient's response to the increased sertraline dose for potential improvement in ADHD symptoms. - Reevaluate the need for additional ADHD-specific medication in 4 weeks or if symptoms worsen. 3. Dry mouth: - Patient reports experiencing dry mouth, a potential side effect of sertraline. Plan: - Encourage the patient to maintain adequate hydration and consider wqiz-lhk-esjwt er remedies for dry mouth if needed. - Monitor for any worsening or additional side effects at the next follow-up visit. Follow-up: - Schedule a follow-up appointment in 4 weeks to reassess the patient's response to the increased sertraline dose, anxiety, irritability, and ADHD symptoms. 08/31/2024 Generalized anxiety disorder (ICD-10 - F41.1) 09/28/2024 Generalized anxiety disorder (ICD-10 - F41.1) 10/29/2024 Mild recurrent major depression (ICD-10 - F33.0) cont sertraline 10/29/2024 Generalized anxiety disorder (ICD-10 - F41.1) 09/28/2024 Mild recurrent major depression (ICD-10 - F33.0) cont sertraline 08/31/2024 Mild recurrent major depression (ICD-10 - F33.0) start sertraline 07/31/2024 Mild recurrent major depression (ICD-10 - F33.0) start sertraline 1. Anxiety and irritability: - Patient reports improvement in irritability after starting sertraline 50 mg daily, but minimal improvement in anxiety. Plan: - Increase sertraline to 100 mg daily. - Reassess anxiety and irritability in 4 weeks. 2. ADHD, primarily inattentive type: - Patient's testing results support a diagnosis of ADHD, primarily inattentive type. 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 Plan: - Monitor the patient's response to the increased sertraline dose for potential improvement in ADHD symptoms. - Reevaluate the need for additional ADHD-specific medication in 4 weeks or if symptoms worsen. 3. Dry mouth: - Patient reports experiencing dry mouth, a potential side effect of sertraline. Plan: - Encourage the patient to maintain adequate hydration and consider wmux-esc-eizsh er remedies for dry mouth if needed. - Monitor for any worsening or additional side effects at the next follow-up visit. Follow-up: - Schedule a follow-up appointment in 4 weeks to reassess the patient's response to the increased sertraline dose, anxiety, irritability, and ADHD symptoms. 07/01/2024 Generalized anxiety disorder (ICD-10 - F41.1) 1. Generalized Anxiety Disorder (MOSES) - Plan: Start the patient on Zoloft 25 mg once daily for two weeks, then increase to 50 mg once daily. Monitor for side effects such as nausea, stomach upset, or sedation. 2. Mild Depression - Plan: The prescribed Zoloft for MOSES should also help with the patient's mild depression symptoms. Encourage the patient to engage in regular exercise and practice time blocking or scheduling tasks to improve mood and overall mental health. 3. Attention Deficit Hyperactivity Disorder (ADHD) - Suspected - Plan: Schedule the patient for ADHD testing, which takes about 45 to 60 minutes. Monitor the patient's response to the anxiety treatment, as easing anxiety may improve ADHD symptoms. If ADHD symptoms persist after addressing anxiety, consider initiating treatment for ADHD. 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 Encourage the patient to maintain a healthy lifestyle and follow up with their primary care provider as needed. 5. Insomnia - Plan: Addressing the patient's anxiety with Zoloft may improve sleep quality. Encourage the patient to practice good sleep hygiene, such as establishing a regular sleep schedule, creating a relaxing bedtime routine, and avoiding stimulating activities before bedtime. 6. Irritability - Plan: The prescribed Zoloft for MOSES may also help with the patient's irritability. Encourage the patient to practice stress management techniques, such as deep breathing exercises, mindfulness, and relaxation techniques. Follow-up: Schedule a follow-up appointment in one month to assess the patient's response to the medication and adjust the treatment plan as needed. 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 Anxiety and irritability: - Patient reports improvement in irritability after starting sertraline 50 mg daily, but minimal improvement in anxiety. Plan: - Increase sertraline to 100 mg daily. - Reassess anxiety and irritability in 4 weeks. 2. ADHD, primarily inattentive type: - Patient's testing results support a diagnosis of ADHD, primarily inattentive type. 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 Plan: - Monitor the patient's response to the increased sertraline dose for potential improvement in ADHD symptoms. - Reevaluate the need for additional ADHD-specific medication in 4 weeks or if symptoms worsen. 3. Dry mouth: - Patient reports experiencing dry mouth, a potential side effect of sertraline. Plan: - Encourage the patient to maintain adequate hydration and consider svez-ppf-kvjeg er remedies for dry mouth if needed. - Monitor for any worsening or additional side effects at the next follow-up visit. Follow-up: - Schedule a follow-up appointment in 4 weeks to reassess the patient's response to the increased sertraline dose, anxiety, irritability, and ADHD symptoms. 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 Generalized Anxiety Disorder (MOSES) - Plan: Start the patient on Zoloft 25 mg once daily for two weeks, then increase to 50 mg once daily. Monitor for side effects such as nausea, stomach upset, or sedation. 2. Mild Depression - Plan: The prescribed Zoloft for MOSES should also help with the patient's mild depression symptoms. Encourage the patient to engage in regular exercise and practice time blocking or scheduling tasks to improve mood and overall mental health. 3. Attention Deficit Hyperactivity Disorder (ADHD) - Suspected - Plan: Schedule the patient for ADHD testing, which takes about 45 to 60 minutes. Monitor the patient's response to the anxiety treatment, as easing anxiety may improve ADHD symptoms. If ADHD symptoms persist after addressing anxiety, consider initiating treatment for ADHD. 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 Encourage the patient to maintain a healthy lifestyle and follow up with their primary care provider as needed. 5. Insomnia - Plan: Addressing the patient's anxiety with Zoloft may improve sleep quality. Encourage the patient to practice good sleep hygiene, such as establishing a regular sleep schedule, creating a relaxing bedtime routine, and avoiding stimulating activities before bedtime. 6. Irritability - Plan: The prescribed Zoloft for MOSES may also help with the patient's irritability. Encourage the patient to practice stress management techniques, such as deep breathing exercises, mindfulness, and relaxation techniques. Follow-up: Schedule a follow-up appointment in one month to assess the patient's response to the medication and adjust the treatment plan as needed. 10/29/2024 ADHD (attention deficit hyperactivity disorder), inattentive type (ICD-10 - F90.0) BOXED WARNINGCaution with history of drug dependence or alcoholism. Marked tolerance and psychological dependence may result from chronic abusive use. Mike psychotic episodes may occur, especially with parenteral abuse. Careful supervision required for withdrawal from abusive use to avoid severe depression. Withdrawal following chronic use may unmask symptoms of underlying disorder that may require follow-up 10/29/2024 Encounter for screening for cardiovascular disorders (ICD-10 - Z13.6) 09/28/2024 ADHD (attention deficit hyperactivity disorder), inattentive type (ICD-10 - F90.0) BOXED WARNINGCaution with history of drug dependence or alcoholism. Marked tolerance and psychological dependence may result from chronic abusive use. Mike psychotic episodes may occur, especially with parenteral abuse. Careful supervision required for withdrawal from abusive use to avoid severe depression. Withdrawal following chronic use may unmask symptoms of underlying disorder that may require follow-up 08/31/2024 ADHD (attention deficit hyperactivity disorder), inattentive type (ICD-10 - F90.0) BOXED WARNINGCaution with history of drug dependence or alcoholism. Marked tolerance and psychological dependence may result from chronic abusive use. Mike psychotic episodes may occur, especially with parenteral abuse. Careful supervision required for withdrawal from abusive use to avoid severe depression. Withdrawal following chronic use may unmask symptoms of underlying disorder that may require follow-up 07/31/2024 Attention and concentration deficit (ICD-10 - R41.840) 1. Anxiety and irritability: - Patient reports improvement in irritability after starting sertraline 50 mg daily, but minimal improvement in anxiety. Plan: - Increase sertraline to 100 mg daily. - Reassess anxiety and irritability in 4 weeks. 2. ADHD, primarily inattentive type: - Patient's testing results support a diagnosis of ADHD, primarily inattentive type. 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 Plan: - Monitor the patient's response to the increased sertraline dose for potential improvement in ADHD symptoms. - Reevaluate the need for additional ADHD-specific medication in 4 weeks or if symptoms worsen. 3. Dry mouth: - Patient reports experiencing dry mouth, a potential side effect of sertraline. Plan: - Encourage the patient to maintain adequate hydration and consider rcis-dyj-huiea er remedies for dry mouth if needed. - Monitor for any worsening or additional side effects at the next follow-up visit. Follow-up: - Schedule a follow-up appointment in 4 weeks to reassess the patient's response to the increased sertraline dose, anxiety, irritability, and ADHD symptoms. 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 Generalized Anxiety Disorder (MOSES) - Plan: Start the patient on Zoloft 25 mg once daily for two weeks, then increase to 50 mg once daily. Monitor for side effects such as nausea, stomach upset, or sedation. 2. Mild Depression - Plan: The prescribed Zoloft for MOSES should also help with the patient's mild depression symptoms. Encourage the patient to engage in regular exercise and practice time blocking or scheduling tasks to improve mood and overall mental health. 3. Attention Deficit Hyperactivity Disorder (ADHD) - Suspected - Plan: Schedule the patient for ADHD testing, which takes about 45 to 60 minutes. Monitor the patient's response to the anxiety treatment, as easing anxiety may improve ADHD symptoms. If ADHD symptoms persist after addressing anxiety, consider initiating treatment for ADHD. 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 Encourage the patient to maintain a healthy lifestyle and follow up with their primary care provider as needed. 5. Insomnia - Plan: Addressing the patient's anxiety with Zoloft may improve sleep quality. Encourage the patient to practice good sleep hygiene, such as establishing a regular sleep schedule, creating a relaxing bedtime routine, and avoiding stimulating activities before bedtime. 6. Irritability - Plan: The prescribed Zoloft for MOSES may also help with the patient's irritability. Encourage the patient to practice stress management techniques, such as deep breathing exercises, mindfulness, and relaxation techniques. Follow-up: Schedule a follow-up appointment in one month to assess the patient's response to the medication and adjust the treatment plan as needed. 07/01/2024 Attention and concentration deficit (ICD-10 - R41.840) 1. Generalized Anxiety Disorder (MOSES) - Plan: Start the patient on Zoloft 25 mg once daily for two weeks, then increase to 50 mg once daily. Monitor for side effects such as nausea, stomach upset, or sedation. 2. Mild Depression - Plan: The prescribed Zoloft for MOSES should also help with the patient's mild depression symptoms. Encourage the patient to engage in regular exercise and practice time blocking or scheduling tasks to improve mood and overall mental health. 3. Attention Deficit Hyperactivity Disorder (ADHD) - Suspected - Plan: Schedule the patient for ADHD testing, which takes about 45 to 60 minutes. Monitor the patient's response to the anxiety treatment, as easing anxiety may improve ADHD symptoms. If ADHD symptoms persist after addressing anxiety, consider initiating treatment for ADHD. 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 Encourage the patient to maintain a healthy lifestyle and follow up with their primary care provider as needed. 5. Insomnia - Plan: Addressing the patient's anxiety with Zoloft may improve sleep quality. Encourage the patient to practice good sleep hygiene, such as establishing a regular sleep schedule, creating a relaxing bedtime routine, and avoiding stimulating activities before bedtime. 6. Irritability - Plan: The prescribed Zoloft for MOSES may also help with the patient's irritability. Encourage the patient to practice stress management techniques, such as deep breathing exercises, mindfulness, and relaxation techniques. Follow-up: Schedule a follow-up appointment in one month to assess the patient's response to the medication and adjust the treatment plan as needed. 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 Generalized Anxiety Disorder (MOSES) - Plan: Start the patient on Zoloft 25 mg once daily for two weeks, then increase to 50 mg once daily. Monitor for side effects such as nausea, stomach upset, or sedation. 2. Mild Depression - Plan: The prescribed Zoloft for MOSES should also help with the patient's mild depression symptoms. Encourage the patient to engage in regular exercise and practice time blocking or scheduling tasks to improve mood and overall mental health. 3. Attention Deficit Hyperactivity Disorder (ADHD) - Suspected - Plan: Schedule the patient for ADHD testing, which takes about 45 to 60 minutes. Monitor the patient's response to the anxiety treatment, as easing anxiety may improve ADHD symptoms. If ADHD symptoms persist after addressing anxiety, consider initiating treatment for ADHD. 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 Encourage the patient to maintain a healthy lifestyle and follow up with their primary care provider as needed. 5. Insomnia - Plan: Addressing the patient's anxiety with Zoloft may improve sleep quality. Encourage the patient to practice good sleep hygiene, such as establishing a regular sleep schedule, creating a relaxing bedtime routine, and avoiding stimulating activities before bedtime. 6. Irritability - Plan: The prescribed Zoloft for MOSES may also help with the patient's irritability. Encourage the patient to practice stress management techniques, such as deep breathing exercises, mindfulness, and relaxation techniques. Follow-up: Schedule a follow-up appointment in one month to assess the patient's response to the medication and adjust the treatment plan as needed. 08/31/2024 Other 1. Major Depressive Disorder (MDD): - Patient's current status not explicitly mentioned. - Continue sertraline 100 mg daily. Plan: - Monitor for improvement in mood and energy levels. - Follow up in one month to assess progress. 2. Generalized Anxiety Disorder (MOSES): - Patient reports significant improvement in anxiety symptoms. - Continue sertraline 100 mg daily. Plan: - Follow up in one month to assess progress. 3. Insomnia: - Improved with sertraline dose increase to 100 mg. Plan: - Encourage good sleep hygiene practices. - Follow up in one month to assess progress. 4. Attention Deficit Hyperactivity Disorder (ADHD), predominantly inattentive type: - Initiate Concerta 18 mg daily in the morning. Plan: - Monitor for improvement in focus, concentration, and task completion. - Educate patient on potential side effects, including appetite suppression and sleep disturbances. - Follow up in one month to assess progress. 5. Hypothyroidism: - Continue levothyroxine as prescribed by primary care provider. Plan: - Encourage patient to maintain regular follow-up with primary care provider for thyroid management. 09/28/2024 Other 1. ADHD: - Patient reports improvement in focus and reduced anxiety with Concerta 18 mg. 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 Plan: - Refill Concerta 18 mg for another month. - Patient to monitor for any side effects and report any concerns. - Continue to evaluate the effectiveness of the medication during follow-up visits. 2. Anxiety: - Patient reports a significant reduction in anxiety symptoms, including racing thoughts and worst-case scenario thinking, since starting Concerta. Plan: - Continue Concerta 18 mg as it appears to be helping with anxiety symptoms. - Encourage the patient to report any changes in anxiety levels or new concerns. 3. Sleep: - Patient initially experienced difficulty sleeping after starting Concerta but reports improvement in sleep quality after a few days. Plan: - Continue to monitor sleep quality and address any sleep disturbances if they arise. 4. Medication coverage and formulary: - Concerta is not on the patient's insurance formulary, and she received a temporary supply. - Methylphenidate LA is a tier 4 drug on her plan. Plan: - Investigate the cost of tier 4 medications for the patient. - Instruct the patient to check [employer] website for additional ADHD medication coverage options. - Consider switching to an alternative medication if necessary based on insurance coverage and cost. 5. Sertraline: - Patient reports having an adequate supply of sertraline. Plan: - Continue sertraline as prescribed. - Monitor for any changes in mood or anxiety symptoms. 6. Side effects management: - Patient experienced teeth clenching as a side effect of Concerta, which resolved after two weeks. - She uses sugar-free gum to help with side effects. Plan: - Encourage the patient to continue using sugar-free gum or lozenges and to drink water to manage any side effects. - Monitor for any new or worsening side effects during follow-up visits. 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 Attention Deficit Hyperactivity Disorder (ADHD) Assessment: Patient reports continued improvement in ADHD symptoms with Concerta. A friend noticed reduced flightiness and squirrel syndrome during their recent vacation, indicating effective symptom management. The patient did not report any significant side effects or problems with the medication, aside from dry mouth. Plan: - Continue Concerta - Monitor for ongoing efficacy and side effects Anxiety and Depression Assessment: Patient denies current anxiety or depression symptoms. 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 The combination of sertraline and methylphenidate appears to be effectively managing her symptoms. Plan: - Continue sertraline 100 mg PO daily - Continue methylphenidate ER 18 mg PO daily - Refill methylphenidate ER prescription Medication Side Effects Assessment: Patient reports dry mouth as the only side effect from her current medication regimen. This is acknowledged as a common side effect of stimulant medications. No sleep disturbances or other adverse effects were reported. Plan: - Continue to monitor for side effects - Educate patient on management strategies for dry mouth the note is transcribed using speech recognition software. It is a reflection of a visit with the patient. It might have some inaccuracy, including medication names and transcribing errors, though efforts have been made to correct them. Plan Of Treatment Pending Test Test Name Order Date ADHD Testing 07/01/2024 ADHD Testing 07/13/2024 Next Appt Details Provider Name:Leeroy nelson, 01/26/2025 01:15:00 PM, [address], [facility], [place], [address], Insurance Providers Payer Name Payer Address Payer Phone Subscriber Number Group Number Insured Name Patient Relationship to Insured Coverage Start Date Coverage End Date Medicare-I l Medicare [address] [place] [phone] [id number] Simran Phoenix Self - patient is the insured [place] [employer] [place] [address] [address] [facility] [place] [address] [id number] Simran Phoenix Self - patient is the insured Medical (General) History Medical History History ICD Code Past Psychiatric History: Anxiety Disord er abdominal aortic aneurysm: No atrial fibrillation: No chronic fatigue syndrome: No essential tremor: No hyperlipidemia: No hypertension: No Parkinson's disease: No restless leg syndrome: No stroke: No subdural hematoma: No type 1 diabetes mellitus: No type 2 diabetes mellitus: No vitamin B12 deficiency: No vitamin D deficiency: Yes
--- OUTSIDE RECORDS SUMMARY | 2024-11-23 10:20 | XMS_ITS | Encounter Summary ---
Author Organization [facility] Address Pending sale to [facility] [place] [address] Care Team Providers Care Content Analyst Name Role Phone Nabil Saldivar MD Primary Care Provider Encounter Details Date Type Department Care Team (Late st Contact Info) Description 10/14/[address] [facility] CONVERSION [address] [place] [address] , Generic ConversionMD Social History Tobacco Use Types Packs/Day Years Used Date Smoking Tobacco: Never Assessed Comments Unknown Sex and Gender Information Value Date Recorded Sex Assigned at Not on file Legal Sex Female 7:57 PM CDT Gender Identity Not on file Sexual Orientation Not on file documented as of this encounter Plan of Treatment Not on file documented as of this encounter Visit Diagnoses Not on filedocumented in this encounter Care Teams Content Analyst Relationship Specialty Start Date End Date Nabil Saldivar MD PCP - General SURGERY 03/10/19 documented as of this encounter
[2024-11-23 10:24] LABS: Iron 51 ug/dL (37-170)
[2024-11-23 10:26] LABS: Prealbumin 20.7 mg/dL (17.6-36.0)
== END 2024-11-23 09:24 | disposition home or self-care (01) ==
LOC: ANHLAB 09:31
PROVIDERS: PCP Nurse Practitioner Family; Visit Provider Surgery Plastic and Reconstructive Surgery
DX: R63.4 Abnormal weight loss (principal)
CPT/HCPCS: 36415; 80048; 82040; 83540; 84134; 84425; 85027

== ENCOUNTER 2024-12-08 02:25 | Day surgery (SDC) | payer OTHER, SELFPAY ==
[2024-11-27 12:51] VITALS: BMI 27.0
--- NOTE | 2024-11-27 13:02 | PC.NURSE ---
Report to the Outpatient Waiting Room, entrance under the green pavilion located off [facility], at time __09:30am on date ___12/08/24____. Planned Procedure Time: 11:30am .? Time changes happen often and if your time is changed the preop area will call you the afternoon before. - You and your visitor will be asked to self-screen and do not enter if you have any COVID symptoms. Please call surgeon if you need to reschedule. - A mask is optional within the hospital at this time. Patients may have clear liquids (water, carbonated beverages, clear teas, apple juice) until 3 hours prior to surgery with a maximum of 20 ounces. - No food from midnight until time of surgery and no smoking, or chewing tobacco (or any form of nicotine). No chewing gum, candy or mints. (0830am) Take only the following medications with a SIP of water on the morning of surgery: ___Thyroid medications (Levothyroxine, & Liothyrionine, and Alprazolam if needed . DO NOT STOP ANY OF YOUR OTHER PRESCRIPTION MEDICATIONS PRIOR TO SURGERY EXCEPT THE FOLLOWING Hold all vitamins and supplements for 3 days per anesthesiologist- Date of last dose is 12/04/24 Medications to discontinue per physician None Date to take last dose None Take Mane per Dr Hughes instructions Please no make-up, nail luxembourger, hairspray, perfume, deodorant, or body powder the day of surgery.? No jewelry (including any body piercings) or valuables the day of surgery, leave them at home.? Please take a shower or bath the night before & the morning of, surgery with an antibacterial soap.?HIBICLEANSE SCRUB per Dr Hughes. Wear comfortable, loose fitting clothing.? - Jewelry must be removed prior to entering the operating room.? Rings and piercings that are not removed may be cut off. - The hospital will not accept responsibility for valuables.? - Please leave all valuables, including medications, at home the day of surgery. If you are going home after surgery, a licensed milk driver must drive you home.? - NO public transportation without another adult if you receive anesthesia. - We recommend that an adult stay with you for 24 hours following discharge. - We also recommend that you do not drive, make important decision, drink alcoholic beverages, or take any drugs that were not prescribed by your health care provider for at least 24 hours after your discharge time. Follow any additional instructions given to you from your surgeon. Telephone instructions given to __Patient and asked if any additional questions and then verbalized understanding. Patient advised to call surgeon office or pre surgery nurse liaison [phone] if any additional questions.
[2024-12-08] VITALS (8 sets, daily range): BP systolic 136–169; BP diastolic 73–94; PULSE 64–74; RESP 14–20; TEMP 36.4–37.3; O2SAT 96–100
--- OUTSIDE RECORDS SUMMARY | 2024-12-08 02:28 | XMS_ITS | Encounter Summary ---
Author Organization [facility] Address [address] [place] [address] Care Team Providers Care School Admissions Representative Name Role Phone Nabil Saldivar MD Primary Care Provider [phone] Reason for Visit * Reason Onset Date Comments Preprocedure Call 03/11/2019 Encounter Details Date Type Department Care Team (Late st Contact Info) Description 03/11/2019 Pre-Procedure Call [facility] [address] [place] [address] Sejal Rain MD Preprocedure Call Social History [...] on filedocumented in this encounter Care Teams School Admissions Representative Relationship Specialty Start Date End Date Nabil Saldivar MD PCP - General SURGERY 03/10/19 documented as of this encounter
--- OUTSIDE RECORDS SUMMARY | 2024-12-08 02:28 | XMS_ITS | Patient Health Record ---
Author Organization [facility] [employer] [facility] Address [address] [facility] [address] [place] [address] Care Team Providers Care Debug Technician Name Role Phone Nuha Whitten Primary Care Provider Katherine Leeroy Willams Unavailable [phone] Christian Fry Unavailable [phone] Allergies No Known Allergies Results Component Value Reference Range Notes UDT Reviewed date:07/16/2024 09:51:05 AM Interpretation: Performing Lab: Notes/Report: THC N 0 - 50 ng/ml Cocaine N 0 - 300 ng/ml Amphetamine N 0 - 1000 ng/ml Buprenorphine (BUP) N 0 - 10 ng/ml Secobarbital (Bar) N 0 - 300 ng/ml Oxazepam (BZO) P 0 - 300 ng/ml 6-bbjuzliuvn-4,7-uskonlfx-8,3-diphenylpyrrolidine (CASEY P) N 0 - 300 ng/ml Methamphetamine (MET) N 0 - 1000 ng/ml Methylenedioxymethamphetamine (MDMA) N 0 - 500 ng/ml Morphine (MOP 300/[id number]) N 0 - 300 ng/ml Methadone (MTD) N 0 - 300 ng/ml Phencyclidine (PCP) N 0 - 25 ng/ml Nortriptyline (TCA) N 0 - 1000 ng/ml Oxycodone N 0 - 300 ng/ml x N 0 - 300 ng/ml UDT Reviewed date:10/29/2024 05:27:18 PM Interpretation: Performing Lab: Notes/Report: THC NEG 0 - 50 ng/ml Cocaine NEG 0 - 300 ng/ml Amphetamine NEG 0 - 1000 ng/ml Buprenorphine (BUP) NEG 0 - 10 ng/ml Secobarbital (Bar) NEG 0 - 300 ng/ml Oxazepam (BZO) NEG 0 - 300 ng/ml 2-jtgminiiow-6,2-rnuyhaua-7,3-diphenylpyrrolidine (CASEY P) NEG 0 - 300 ng/ml Methamphetamine (MET) NEG 0 - 1000 ng/ml Methylenedioxymethamphetamine (MDMA) NEG 0 - 500 ng/ml Morphine (MOP 300/[id number]) NEG 0 - 300 ng/ml Methadone (MTD) NEG 0 - 300 ng/ml Phencyclidine (PCP) NEG 0 - 25 ng/ml Nortriptyline (TCA) NEG 0 - 1000 ng/ml Oxycodone NEG 0 - 300 ng/ml x NEG 0 - 300 ng/ml UDT Reviewed date:07/03/2024 01:53:52 PM Interpretation: Performing Lab: Notes/Report: THC NEG 0 - 50 ng/ml Cocaine NEG 0 - 300 ng/ml Amphetamine NEG 0 - 1000 ng/ml Buprenorphine (BUP) NEG 0 - 10 ng/ml Secobarbital (Bar) NEG 0 - 300 ng/ml Oxazepam (BZO) POS 0 - 300 ng/ml 2-qfjmegfhbo-5,6-boavjhvj-6,3-diphenylpyrrolidine (CASEY P) NEG 0 - 300 ng/ml Methamphetamine (MET) NEG 0 - 1000 ng/ml Methylenedioxymethamphetamine (MDMA) NEG 0 - 500 ng/ml Morphine (MOP 300/XSR4365) NEG 0 - 300 ng/ml Methadone (MTD) [...] empty stomach Orally Once a day Active Xyzal Active Vitamin D3 Active Multivitamin - 1 tablet Orally Once a day Active Methylphenidate HCl ER (OSM) 18 MG 1 tablet in the morning Orally Once a day for 30 days 10/29/2024 01/03/2025 Active Calcium Carbonate 1250 (500 Ca) MG [...] Problem Status W/U Status Risk Notes Problem [id number] Generalized anxiety disorder (F41.1) Active confirmed Problem 56101136 Attention and concentration deficit (R41.840) Active confirmed Problem ADHD (attention deficit hyperactivity disorder), inattentive type (F90.0) Active confirmed Problem [id number] 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) Active confirmed [...] N/A Encounters Encounter Location Date Provider Diagnosis [facility] [address] [facility] [address] [address] 07/01/2024 Leeroy Rossi Hypertension, unspecified type 401.9 ; Generalized anxiety disorder F41.1 ; Mild recurrent major depression F33.0 ; 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 and Attention and concentration deficit R41.840 [facility] [address] [address] 07/13/2024 Christian Fry Attention and concentration deficit R41.840 [facility] [address] [facility] [address] [facility] [address] [place] [address] 07/31/2024 Leeroy Rossi Generalized anxiety disorder F41.1 ; Mild recurrent major depression F33.0 ; 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 and Attention and concentration deficit R41.840 [place] [address] [facility] [address] [facility] [address] [place] [address] 08/31/2024 Leeroy Rossi Generalized anxiety disorder F41.1 ; Mild recurrent major depression F33.0 ; 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1 ; ADHD (attention deficit hyperactivity disorder), inattentive type F90.0 ; Encounter for screening for cardiovascular disorders Z13.6 ; Encounter for screening for depression Z13.31 and 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 [place] [address] [facility] [address] [address] 05/18/2024 Leeroy Rossi [place] [address] [facility] [address] [facility] [address] [place] [address] 12/04/2024 Leeroy Rossi ADHD (attention defi cit hyperactivity disorder), inattentive type F90.0 [place] [address] [facility] [address] [facility] [address] [place] [address] 12/04/2024 Leeroy Rossi ADHD (attention defi cit hyperactivity disorder), inattentive type F90.0 Assessments Encounter Date Diagnosis (ICD Code) Assessment [...] patient to maintain adequate hydration and consider vhcq-txm-nxmqy er remedies for dry mouth if needed. [...] major depression (ICD-10 - F33.0) cont sertraline 12/04/2024 ADHD (attention deficit hyperactivity disorder), inattentive type (ICD-10 - F90.0) 12/04/2024 ADHD (attention deficit hyperactivity disorder), inattentive type (ICD-10 - F90.0) 10/29/2024 Generalized anxiety disorder (ICD-10 - F41.1) [...] patient to maintain adequate hydration and consider noma-uim-tepef er remedies for dry mouth if needed. [...] patient to maintain adequate hydration and consider gmdv-agm-gzbhb er remedies for dry mouth if needed. [...] patient to maintain adequate hydration and consider zgig-gmz-tsprj er remedies for dry mouth if needed. [...] patient. - Instruct the patient to check [facility] [facility] website for additional ADHD medication coverage options. [...] worsening side effects during follow-up visits. 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 Attention Deficit Hyperactivity Disorder (ADHD) Assessment: Patient [...] 01/26/2025 01:15:00 PM, [address], [address], [place], [address], Insurance Providers Payer Name Payer Address Payer Phone Subscriber Number Group Number Insured Name Patient Relationship to Insured Coverage Start Date Coverage End Date Medicare-I l Medicare [address] [place] [address] [id number] Simran Phoenix Self - patient is the insured [place] [employer] [place] [address] [facility] [id number] Simran Phoenix Self - patient is the [...]
--- OUTSIDE RECORDS SUMMARY | 2024-12-08 02:28 | XMS_ITS | Encounter Summary ---
Author Organization [facility] Address [facility] [place] [address] Care Team Providers Care Fatback Trimmer Name Role Phone Nabil Saldivar MD Primary Care Provider Encounter Details Date Type Department Care Team (Late st Contact Info) Description 10/14/2017 Abstract [facility] CONVERSION [address] [place] [address] , Generic ConversionMD Social History Tobacco Use [...] on filedocumented in this encounter Care Teams Fatback Trimmer Relationship Specialty Start Date End Date Nabil Saldivar MD PCP - General SURGERY 03/10/19 documented as of this encounter
--- OUTSIDE RECORDS SUMMARY | 2024-12-08 02:28 | XMS_ITS | Clinical Summary ---
Author Organization [facility] Address [facility] [place] [address] Phone Care Team Providers Care Environmental Sciences Professor Name Role Phone Unavailable Primary Care Provider Unavailabl e Social History Tobacco Use Types Packs/Day Years Used Date Smoking Tobacco: Never Assessed Comments Unknown Sex and Gender Information Value Date Recorded Sex Assigned at Not on file Legal Sex Female 10:05 AM LEHR ATTENDANT Gender Identity Not on file Sexual Orientation [...]
--- OUTSIDE RECORDS SUMMARY | 2024-12-08 02:28 | XMS_ITS | Clinical Summary ---
Author Organization [facility] Address [address] [place] [address] Care Team Providers Care Manufacturing Production Manager Name Role Phone Nabil Saldivar MD Primary Care Provider [phone] Allergies No known active allergies Medications levothyroxine [...] - 2023-2 5 season) 2024 PHQ-2 (Physician Herscher) 07/29/2024 RSV Immunization or 60+ Years (1 [...] patient's age to complete this topic Insurance [facility] Care Teams Manufacturing Production Manager Relationship Specialty Start Date End Date Nabil Saldivar MD PCP - General SURGERY 03/10/19
[2024-12-08] MEDS: LACTATED RINGERS 1,000 ML 30 ML IV CONT (09:50)
[2024-12-08 09:53] LABS: Urine Cotinine NEGATIVE
--- NOTE | 2024-12-08 11:18 | WPDHPUPDATE1 ---
History and Physical Update Update Date/Time: 12/08/24 11:18 History and Physical has been reviewed, including an updated exam of the patient. There are NO changes in the patient's condition. Risks, benefits, and alternatives have been discussed and questions answered. Patient agrees to proceed with procedure.
--- NOTE | 2024-12-08 11:19 | W.PM.PROC2 ---
Procedure Note - Detailed Date of Procedure 12/08/24 Pre-op Diagnosis Skin Laxity Post-op Diagnosis Same Procedure Performed Bilateral brachioplasty Surgeon Coy Hughes MD Anesthesia General Findings Lipoaspirate: 1,450 cc Description of Procedure Here for the above procedures. Preoperatively risks, benefits, alternatives were discussed again today in extensive detail. I want to be very realistic about the risks involved as well as expectations. Made sure answered all of their questions to satisfaction. They voiced a clear understanding. Consent obtained. Patient was marked in the preoperative holding area with their verification. Taken to the operating placed supine on the operating table. Anesthesia was provided by anesthesiology. Prepped and draped in a standard sterile fashion. Surgical time-out was taken. Stab incisions were made and I tumesced with a tumescent solution. Once adequate time for hemostasis suction lipectomy was with a 4 mm basket cannula based on S.A.F.E. technique. This was completed based on preoperative planning, intraoperative observation, and rolling pinch test which was in full agreement. I completely de-fatted the planned resection area and a strip avulsion technique was completed. Starting proximal to distal a 10 blade was used to excise the intervening skin and this was tacked as we proceed to ensure good closure. This was closed using a 2-0 Quill, 3-0 strata fix, running subcuticular 4-0 Monocryl, and Brijjits. Remaining closed with tissue glue. Dressings were placed. Tolerated the procedure well. Taken to the PACU without difficulty. All instrument sponge counts were correct at the end of the case. Estimated Blood Loss 30 Drains No Packing No Pathology None sent Complications No immediate complications Condition Stable Disposition PACU
--- NOTE | 2024-12-08 11:35 | WPDANESEPPF ---
Anes - Initial Pre Proc Eval Procedure: Operation Date: 12/08/24 11:30 Proposed Procedures p Bilateral Brachioplasty - Coy Hughes MD Date/Time: 12/08/24 11:35 Surgeon: Coy Hughes MD Pre Op Diagnosis: Skin Laxity Patient Data Age: 64 Gender: F Height: 1.57 m Weight: 70.5 kg Last Vital Signs Temp 36.4 C L 12/08/24 09:24 Pulse 72 12/08/24 09:24 Resp 16 12/08/24 09:24 BP 161/84 H 12/08/24 09:24 Pulse Ox 99 12/08/24 09:24 O2 Del Method Room Air 12/08/24 09:24 Allergies Allergy/AdvReac Type Severity Reaction Status Date / Time No Known Allergies Allergy Unknown Verified 12/08/24 10:31 Home Medications ?Medication ?Instructions ?Recorded ?Confirmed ?Type multivitamin,[id number] 1 tablet PO DAILY 08/31/19 12/08/24 History (Complete Multivitamin tablet) levocetirizine 5 mg tablet (Xyzal) 5 mg PO DAILY 05/24/22 12/08/24 History calcium carbonate 500 mg PO DAILY 12/17/23 12/08/24 History cholecalciferol (vitamin D3) 1,250 See Rx Instructions .Route 07/16/24 12/08/24 Rx mcg (50,000 unit) capsule .COMPLEX #12 caps alprazolam 0.25 mg tablet 0.25 mg PO .q8hr PRN anxiety #90 08/19/24 11/27/24 Rx tabs sertraline 100 mg tablet (Zoloft) 100 mg PO DAILY 08/19/24 12/08/24 History levothyroxine 75 mcg tablet 75 mcg PO .COMPLEX #90 tabs 09/07/24 12/08/24 Rx liothyronine 5 mcg tablet (Cytomel) 5 mcg PO DAILY 90 days #90 tabs 09/09/24 12/08/24 Rx ferrous sulfate 325 mg (65 mg 325 mg PO .QOD 11/27/24 12/08/24 History iron) tablet (Feosol) methylphenidate HCl 18 mg 18 mg PO QAM 11/27/24 12/08/24 History tablet,extended release 24 hr (Concerta) Laboratory Tests 12/08/24 09:32 Cotinine Negative Patient hx anesthesia problems: none Family hx anesthesia problems: none Results Review: All pre-operative results and documents have been reviewed as part of the pre-operative evaluation. [facility], [facility] Past Medical History Medical History Hypothyroidism (acquired) Iron deficiency Multinodular goiter Thyroid nodule Surgical History Surgical History History of abdominoplasty History of partial hysterectomy H/O: History of appendectomy Family History Family History Grandparent Diabetes mellitus Family history of Alzheimer's disease Family history of malignant neoplasm of uterus Other Family history of thyroid disease Social History Social History Social History: 08/16/24 very confident with medical forms Smoking status: Never smoker Second hand tobacco smoke exposure: No Alcohol intake: never Alcohol use details: rarely Substance use: never Substance use type: does not use Do You Feel Safe in your Home?: Yes Lack of Transportation: No Lack of Food: Never True Current Housing: I Have Housing Concerned About Future Housing: No Difficulty Paying Gas/Electric Bills: No Difficulty Paying for Meds: No Currently Unemployed: No Education: High School Diploma/GED Difficulty w/ Childcare or Family Care: No Living arrangements: with family Additional living arrangements comments: 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/Education: occupation 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 Gender identity (if verbalized by the patient): Female Spiritual care concerns: No Agree to blood products: Yes Anes - Eval Final PreProcedure Day of Procedure 12/08/24 11:35 Patient weight: overweight Heart: regular rate and rhythm Lungs: clear to auscultation Airway: Mallampati scale class II Neurological: alert and oriented Last oral intake: >/= 8 hours ASA classification: II Emergent: no Anesthetic plan: proceed Anesthesia type and monitoring: general LMA and standard monitoring Results Review: All pre-operative results and documents have been reviewed as part of the pre-operative evaluation. Informed Consent: The patient's anesthetic plan and its attendant risks and benefits were discussed with the patient/family/POA. Questions were solicited and answers provided to the satisfaction of the patient/family/POA.
[2024-12-08] MEDS: SCOPOLAMINE 1 MG PATCH 1 PATCH TRANSDERM (11:46)
[2024-12-08] MEDS: ceFAZolin 2 GM/D5W 50 ML 2 GM/50 ML BAG IVPB (11:51)
[2024-12-08] MEDS: TRANEXAMIC ACID 1,000MG/ISO100 1,000 MG/100 ML BAG 200 MG IVPB (12:02)
[2024-12-08] MEDS: LACTATED RINGERS IRRIG 1,000 ML, LIDOCAINE 1% LOCAL INJ 50 ML, EPINEPHrine HCL INJ 1 MG... INFILTRATE (12:33)
[2024-12-08] MEDS: oxyCODONE HCL (*CRX) 5 MG TAB IR PO (14:59)
== END 2024-12-08 15:35 | disposition home or self-care (01) ==
PROVIDERS: PCP Nurse Practitioner Family; Visit Provider Surgery Plastic and Reconstructive Surgery
PROC: (CPT 15836; principal; 2024-12-08 11:30)
DX: Z41.1 Encounter for cosmetic surgery (principal); L57.4 Cutis laxa senilis; Z79.899 Other long term (current) drug therapy
CPT/HCPCS: 15878; 15836; 80307; A9270; J0171; J0690; J1100; J2003; J2250; J2405; J2704; J3010; J7120